=== PATIENT | female | born 1955 | race Caucasian/White ===

== ENCOUNTER → 2023-06-25 09:06 | Outpatient (REF) | payer OTHER, SELFPAY | LOC: HWRAD 09:06 | PROVIDERS: ATTENDING PHYSICIAN Urology; FAMILY PHYSICIAN Family Medicine | DX: N21.0 Calculus in bladder (principal) | CPT/HCPCS: 74178; Q9967 ==

== ENCOUNTER 2023-08-03 06:31 | Day surgery (SDC) | payer OTHER, SELFPAY ==
[2023-07-13 08:30] VITALS: BMI 33.5
[2023-07-13 08:51] LABS: Hematocrit 41.7 % (37.0-47.0); Hemoglobin 14.1 g/dL (12.0-16.0); Mean Corp Hgb Conc. 33.8 g/dL (33.0-37.0); Mean Corpuscular Hgb 30.9 pg (27.0-31.0); Mean Corpuscular Volume 91.2 fL (81.0-99.0); Mean Platelet Volume 9.8 fL (7.4-10.4); Platelet Count 222 10^3/uL (130-400); Red Blood Cell Count 4.57 10^6/uL (4.20-5.40); Red Cell Dist. Width 12.7 % (11.5-14.5); White Blood Cell Count 5.7 10^3/uL (4.8-10.8)
[2023-07-13 09:24] LABS: APTT 32.2 Sec (23.4-35.0); INR 0.97; PT 12.7 Sec (11.4-14.6)
[2023-07-13 09:31] LABS: Blood Urea Nitrogen 19 mg/dl (7-17); Calcium 9.9 mg/dl (8.4-10.2); Carbon Dioxide 29 mmol/L (22-30); Chloride 102 mmol/L (98-107); Estimated Creatinine Clearance 79 ml/min; Glucose 97 mg/dl (70-99); Potassium 3.2 mmol/L (3.5-5.1); Sodium 137 mmol/L (135-145); eGFR > 60.00
[2023-07-13 10:13] LABS: Urine Albumin Negative (Neg - Trace); Urine Bilirubin Negative (Negative); Urine Character Slightly Cloudy (Clear); Urine Color Straw; Urine Glucose Negative (Negative); Urine Ketone Negative (Negative); Urine Leukocyte 1+ (Negative); Urine Nitrite Positive (Negative); Urine Occult Blood 2+ (Negative); Urine Urobilinogen Negative (Neg - 1+)
[2023-07-13 10:31] LABS: Urine Squamous Cell >30 /LPF (Few)
[2023-07-13 10:32] LABS: Urine Bacteria Moderate (Negative); Urine Red Blood Cell 0-2 /HPF (0-2); Urine White Cell 16-20 /HPF (0-5)
--- NOTE | 2023-07-13 14:22 | PTCARENOTE ---
Patients 07/12 EKG abnormal- reviewed by Dr. Flynn, no additional interventions required
--- NOTE | 2023-07-30 11:29 | PTCARENOTE ---
Antoinette at 's office was notified of K+ 3.2 and abnormal urinalysis both collected on 07/13/23.
--- NOTE | 2023-07-31 12:35 | PTCARENOTE ---
K 3.[address] Tavarez.
[2023-08-03] VITALS (7 sets, daily range): BP systolic 122–171; BP diastolic 62–93; BMI 33.5
[2023-08-03] MEDS: NORMOSOL-R 1000 IV (13:08)
[2023-08-03] MEDS: DETROL LA 4 MG PO (14:31)
[2023-08-03] MEDS: Pyridium 200 MG PO (14:31)
== END 2023-08-03 15:35 | disposition home or self-care (01) ==
LOC: SDS 06:31
PROVIDERS: ATTENDING PHYSICIAN Surgery; FAMILY PHYSICIAN Family Medicine; OTHER PHYSICIAN Urology
DX: N21.0 Calculus in bladder (principal); T19.1XXA Foreign body in bladder, initial encounter; W44.8XXA Other foreign body entering into or through a natural orifice, initial encounter
CPT/HCPCS: 52317; 36415; 74018; 76000; 80048; 81003; 81015; 85027; 85610; 85730; 93005; A4300; C1758; C1769; C1894

== ENCOUNTER 2023-12-04 05:57 | Day surgery (SDC) | payer OTHER, SELFPAY ==
[2023-12-03 09:56] VITALS: BMI 33.0
[2023-12-03 10:21] LABS: Hematocrit 39.7 % (37.0-47.0); Hemoglobin 13.8 g/dL (12.0-16.0); Mean Corp Hgb Conc. 34.8 g/dL (33.0-37.0); Mean Corpuscular Hgb 31.7 pg (27.0-31.0); Mean Corpuscular Volume 91.1 fL (81.0-99.0); Mean Platelet Volume 10.3 fL (7.4-10.4); Platelet Count 209 10^3/uL (130-400); Red Blood Cell Count 4.36 10^6/uL (4.20-5.40); Red Cell Dist. Width 12.9 % (11.5-14.5); White Blood Cell Count 5.1 10^3/uL (4.8-10.8)
[2023-12-03 11:22] LABS: Blood Urea Nitrogen 21 mg/dl (7-17); Carbon Dioxide 25 mmol/L (22-30); Chloride 103 mmol/L (98-107); Estimated Creatinine Clearance 67 ml/min; Glucose 94 mg/dl (70-99); Potassium 3.5 mmol/L (3.5-5.1); Sodium 136 mmol/L (135-145); eGFR > 60.00
--- NOTE | 2023-12-03 13:47 | PTCARENOTE ---
Abn ECG, Dr. Elizalde notified, no further actions requested.
[2023-12-04] VITALS (11 sets, daily range): BP systolic 108–160; BP diastolic 57–104; BMI 33.0
[2023-12-04] MEDS: NORMOSOL-R/PLASMALYTE-A 1000 IV (06:33)
[2023-12-04] MEDS: Pyridium 200 MG PO (06:33)
== END 2023-12-04 13:19 | disposition home or self-care (01) ==
LOC: SDS 05:57
PROVIDERS: ATTENDING PHYSICIAN Obstetrics & Gynecology; FAMILY PHYSICIAN Family Medicine; OTHER PHYSICIAN Urology
DX: N81.6 Rectocele (principal); T19.1XXA Foreign body in bladder, initial encounter; W44.8XXA Other foreign body entering into or through a natural orifice, initial encounter; Z87.440 Personal history of urinary (tract) infections
CPT/HCPCS: 57282; 57260; 52318; 88300; 36415; 80048; 85027; 86850; 86900; 86901; 93005

== ENCOUNTER 2025-01-18 01:48 | Emergency (ER) | payer OTHER, SELFPAY ==
[2025-01-18] VITALS (18 sets, daily range): BP systolic 78–164; BP diastolic 53–100; BMI 36.0
--- NOTE | 2025-01-18 02:19 | EDRN ---
Pt went to bed and started feeling her heart beat 'was off' so she got up and listened to her heart with a stethoscope 'and it sounded bad.' This was around 0015. Pt says she didn't feel bad but her made her come to the ED. Pt says she
had afib once before and she spontaneously converted so she hoped she would do the same now. No cp, sob, abd pain, n/v, dizziness, weakness. Pt feels shaky 'because I'm nervous.'
--- NOTE | 2025-01-18 02:30 | ED.GENMED ---
History of Present Illness
General
Chief Complaint: Heart Rate Problem
Source: patient
Time Seen by Provider: 01/18/25 02:19
History of Present Illness
History of Present Illness:
69-year-old female presents to the emergency room complaint palpitations. Patient states he was laying there when she felt like her heart rate became very rapid. She has had a history of A-fib 1 several years ago and this feels the same. No chest
pain or shortness of breath. She does not take any oral anticoagulants. She did have a knee replacement performed on December 24. She has been recovering from this. She denies any fever, chills, nausea or vomiting.
Phy Exam
Physical Exam
Physical Exam:
General: Awake, Alert, Oriented X3. No acute distress.
Vitals: Tachycardic
Head: Atraumatic
Eyes: Pupils equal, EOMI
Throat: Airway intact, no exudates
Neck: Trachea midline
Lungs: Clear and equal b/l
Heart: Regular rate, no murmurs
Abd: Soft, Nontender, No pulsatile mass
Neuro: Nonfocal
Skin: Warm, dry, no rash
Extremities: pulses equal b/l, no edema
Course
Orders/Labs/Results
Orders:
Orders
01/18/25 01:49
EKG [Electrocardiogram (*1)] Urgent
Reason for Study: Atrial Fibrillation
01/18/25 01:50
EKG- Treatment ONCE
01/18/25 02:29
Diltiazem 125 mg/125 ml Nss [Cardizem] 125 mg in 125 ml IV NOW
Initial dose in mg/hr, then titrate:: 5
Titrate to keep:: Heart rate 80-100 bpm
Titrate by mg/hr:: 5 mg/hr
Frequency of titrations (minutes):: 15
Maximum dose in mg/hr:: 15
Diltiazem HCl [Cardizem] 20 mg IV NOW STA
01/18/25 02:37
Basic Metabolic Panel Urgent
Complete Blood Count/With Diff Urgent
Prothrombin Time Urgent
01/18/25 04:34
Propofol [Diprivan] 20 ml .ROUTE .STK-MED
01/18/25 05:03
Apixaban [Eliquis] 5 mg PO NOW STA
01/18/25 05:31
Electrocardiogram (*1) Urgent
Reason for Study: Palpitations
EKG- Treatment ONCE
Abnormal Lab Results
01/18/25
02:37
Absolute Monos (auto) 0.8 H 10^3/uL
(0.1-0.6)
Monocytes % 11.7 H %
(1.7-9.3)
Eosinophils % 7.9 H %
(0-6)
BUN 20 H mg/dl
(7-17)
Glucose 114 H mg/dl
(70-99)
01/18/25 02:37
01/18/25 02:37
Vital Signs
Initial and Last Documented VS:
Initial Vital Signs
Temp Pulse Resp BP Pulse Ox
98.4 F 136 20 124/92 96
01/18/25 01:59 01/18/25 01:59 01/18/25 01:59 01/18/25 01:59 01/18/25 01:59
Last Documented Vital Signs
Temp Pulse Resp BP Pulse Ox
98.2 F 67 15 110/69 98
01/18/25 05:25 01/18/25 05:25 01/18/25 05:25 01/18/25 05:25 01/18/25 05:25
Procedures
Cardioversion
Indication:: Afib
Performed by:: myself
Synchronized?: Yes
Energy Used: 200 joules
Successful?: Yes
ASA Risk Score: Class II
Any reaction or bad outcome to prior sedation/anesthesia?: No history of a reaction
Sedation level to be attained: moderate
Chart and allergies reviewed: Yes
Patient reassessed prior to sedation: Yes
Time out completed at (validating right patient & procedure): 04:52
History of difficult intubation: No
Airway free of obstruction: Yes
Patient has a gag reflex: Yes
Patient is able to open mouth: Yes
Patient has no dentures: Yes
Patient has no loose teeth: Yes
Medication administered by Provider during Moderate Sedation: IV Propofol (mg)
Total dose administered: 50
Time drug administered: 04:52
Start Time: 04:52
Stop Time: 05:02
MDM/Problems Addressed
Differential Diagnosis Includes:
Frequent PACs, frequent PVCs, paroxysmal atrial fibrillation, SVT
MDM/Problems Addressed:
Patient presents after experiencing palpitations in the middle of the night. Symptoms were very sudden onset. 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 Patient Be in atrial for but
rapid ventricular response here. Labs are unremarkable. Patient initially started on Cardizem infusion after a bolus. This resulted in good rate control but she remained in atrial fibrillation. Given the fact the patient is quite confident
recently onset of the A-fib we proceeded with cardioversion. Patient was successfully cardioverted with 1 shock. Will discharge her on Eliquis. Follow-up cardiology as an outpatient.
*Pulse Oximetry
SaO2: 97
Oxygen Mode of Delivery: Room air
Patient hypoxic: no
*EKG
Interpreted by ED Provider?: Yes
Interpretation: abnormal
Heart Rate: 129
Rate: tachycardiac
Rhythm: a-fib
[place]: normal axis
Interval: normal interval
QRS Pattern: normal QRS
Ischemia: non-specific ST changes
*Cyber Incident Responder Interpretation
Rate: tachycardiac
Interpretation: abnormal
Rhythm: a-fib
*Critical Care Note
Total Time (30-74mins, 75-104mins- exclusive of procedures): 34min
comment:
Critical care statement: A total of 34 minutes of critical care time was provided for this patient. This includes management of unstable vital signs, evaluation of the patient at bedside, reviewing the patient's pertinent medical records, discussion
with consultants, review of old EKGs and review of pertinent medical records. This time with separate from time utilized to perform the aforementioned documented procedures
ED Attending Note
-
Portions of this chart may have been created with voice recognition software.� Occasional wrong word or��sound alike� substitutions may have occurred due to the inherent limitations of voice recognition software.
Discharge Plan
Departure
Patient Disposition: Home (Routine Discharge)
Date of Disposition: 01/18/25
Time of Disposition: 05:23
Patient with high blood pressure during this ER visit?: No
Condition: Good
Discharge Problem:
Paroxysmal A-fib
Instructions: Atrial Fibrillation (DC), Sedation for procedures in adults - ED (DC), BLOOD PRESSURE
Prescriptions:
New
Eliquis 5 mg tablet
5 mg PO BID Qty: 60 0RF
No Action
atorvastatin 20 mg Tablet
20 mg PO QPM
metoprolol succinate 50 mg Tablet Extended Release 24 Hr
50 mg PO HS
acetaminophen 500 mg Tablet
1,000 mg PO Q6H PRN (Reason: pain)
amitriptyline 10 mg Tablet
10 - 20 mg PO HS
valsartan 320 mg Tablet
320 mg PO HS
hydrochlorothiazide 25 mg Tablet
25 mg PO DAILY
Prelief 65 mg Tablet
65 mg PO PRN PRN (Reason: Acidic Foods)
cranberry extract [Ellura] 200 mg Capsule
200 mg PO DAILY
acetaminophen-caffeine 500-65 mg Tablet
2 tab PO Q12H PRN (Reason: pain/TIDWELL)
CoQ-10
300 mg PO DAILY
aspirin 81 mg Capsule
81 mg PO BID
Referrals:
Amy Wise DO [Family Provider, Family Practice]
Karan Coleman MD [Active, Cardiology]
Interventions
Interventions:
*Risk Screen - Suicide Last Done: 01/18/25 01:57
*General Assessment Last Done: 01/18/25 01:57
*Neglect/Abuse Screening Last Done: 01/18/25 01:57
*ED- Fall Risk Assessment Last Done: 01/18/25 02:53
ED- Cardiac Assessment Last Done: 01/18/25 02:27
ED- Pulmonary Assessment Last Done: 01/18/25 02:27
Discharge Date and Time
Print Language: PORTUGUESE
[2025-01-18] MEDS: CARDIZEM 20 MG IV (02:45)
[2025-01-18 02:52] LABS: Hematocrit 38.0 % (37.0-47.0); Hemoglobin 12.9 g/dL (12.0-16.0); Mean Corp Hgb Conc. 33.9 g/dL (33.0-37.0); Mean Corpuscular Volume 90.3 fL (81.0-99.0); Nucleated Red Blood Cells % 0 %; Platelet Count 215 10^3/uL (130-400); Red Cell Dist. Width 13.4 % (11.5-14.5)
[2025-01-18] MEDS: CARDIZEM 125 IV (02:52)
[2025-01-18 03:09] LABS: INR 0.89; PT 12.4 Sec (11.4-14.6)
[2025-01-18 03:15] LABS: Blood Urea Nitrogen 20 mg/dl (7-17); Calcium 9.6 mg/dl (8.4-10.2); Carbon Dioxide 24 mmol/L (22-30); Chloride 107 mmol/L (98-107); Estimated Creatinine Clearance 96 ml/min; Glucose 114 mg/dl (70-99); Potassium 3.6 mmol/L (3.5-5.1); Sodium 137 mmol/L (135-145); eGFR > 60.00
[2025-01-18] MEDS: ELIQUIS 5 MG PO (05:24)
== END 2025-01-18 05:45 | disposition home or self-care (01) ==
LOC: EMR 01:48
PROVIDERS: EMERGENCY PHYSICIAN Emergency Medicine; FAMILY PHYSICIAN Family Medicine
DX: I48.0 Paroxysmal atrial fibrillation (principal); I48.91 Unspecified atrial fibrillation; Z79.01 Long term (current) use of anticoagulants; Z96.659 Presence of unspecified artificial knee joint
CPT/HCPCS: 99283; 92960; 96374; 96376; 80048; 85025; 85610; 93005

== ENCOUNTER → 2025-02-18 14:52 | Outpatient (REF) | payer OTHER, SELFPAY | LOC: HWRCS 14:52 | PROVIDERS: ATTENDING PHYSICIAN Internal Medicine Cardiovascular Disease; FAMILY PHYSICIAN Family Medicine | DX: I48.0 Paroxysmal atrial fibrillation (principal) | CPT/HCPCS: 93306 ==

== ENCOUNTER → 2025-04-14 07:52 | Outpatient (REF) | payer OTHER, SELFPAY | LOC: DHSLP 07:52 | PROVIDERS: ATTENDING PHYSICIAN Internal Medicine Cardiovascular Disease; FAMILY PHYSICIAN Family Medicine | DX: G47.33 Obstructive sleep apnea (adult) (pediatric) (principal) | CPT/HCPCS: 95806 ==